=== PATIENT | male | born 1965 | race Caucasian/White ===

== ENCOUNTER 2018-05-21 11:33 | Inpatient (IN) | payer OTHER ==
[2018-05-21 15:25] VITALS: BMI 30.4
--- NOTE | 2018-05-21 17:11 | HP ---
COWS - Scale Resting Pulse: 0= NM 80 or Below Sweatin=Flushed/Facial Moisture Restless Observation: 1= Difficult to Sit Still Pupil Size: 0= Normal to Room Light Bone or Joint Aches: 2= Severe Diffuse Aches Runny Nose/ Eye Tearin= Runny Nose/Eyes GI Upset > 30mins: 2= Nausea/Diarrhea Tremor Observation: 2= Slight Tremor Visible Yawning Observation: 2= >3x During Session Anxiety or Irritability: 2=Irritable/Anxious Goose Flesh Skin: 3=Piloerection COWS Score: 18 CIWA Score - CIWA Score Nausea/Vomitin-Mild Nausea/No Vomiting Muscle Tremors: 4-Moderate,w/Arms Extend Anxiety: 4-Mod. Anxious/Guarded Agitation: 4-Moderately Restless Paroxysmal Sweats: 3 Orientation: 0-Oriented Tacttile Disturbances: 0-None Auditory Disturbances: 0-None Visual Disturbances: 0-None Headache: 1-Very Mild CIWA-Ar Total Score: 17 Admission ROS [facility] - HPI Chief Complaint: I need help. Allergies/Adverse Reactions: Allergies Allergy/AdvReac Type Severity Reaction Status Date / Time lactose Allergy Verified 05/21/18 17:05 History of Present Illness: pt is a 53yr old male with a history of alcohol and heroin dependence seeking detox for treatment. Exam Limitations: No Limitations - Ebola screening Have you traveled outside of the country in the last 21 days: No Have you had contact with anyone from an Ebola affected area: No Have you been sick,other than usual withdrawal symptoms: No Do you have a fever: No - Review of Systems Constitutional: Chills, Diaphoresis, Loss of Appetite, Night Sweats, Changes in sleep EENT: reports: Tearing, Nose Congestion Respiratory: reports: No Symptoms reported Cardiac: reports: Lightheadedness GI: reports: Nausea, Poor Appetite, Poor Fluid Intake : reports: No Symptoms Reported Musculoskeletal: reports: Joint Pain, Muscle Pain Integumentary: reports: Flushing, Sweating Neuro: reports: Tingling Endocrine: reports: Excessive Sweating, Flushing, Intolerance to Cold, Intolerance to Heat Hematology: reports: No Symptoms Reported Psychiatric: reports: Judgement Intact, Mood/Affect Appropiate, Orientated x3, Agitated, Anxious Other Systems: Reviewed and Negative Patient History - Patient Medical History Hx Anemia: No Hx Asthma: No Hx Chronic Obstructive Pulmonary Disease (COPD): No Hx Cancer: No Hx Cardiac Disorders: No Hx Congestive Heart Failure: No Hx Hypertension: Yes (not currently taking medication) Hx Hypercholesterolemia: No Hx Pacemaker: No HX Cerebrovascular Accident: No Hx Seizures: No Hx Dementia: No Hx Diabetes: No Hx Gastrointestinal Disorders: No Hx Liver Disease: No Hx Genitourinary Disorders: No Hx Sexually Transmitted Disorders: No Hx Renal Disease (ESRD): No Hx Thyroid Disease: No Hx Human Immunodeficiency Virus (HIV): No (denies) Hx Hepatitis C: No (denies) Hx Depression: Yes Hx Suicide Attempt: No (denies) Hx Bipolar Disorder: No Hx Schizophrenia: No - Patient Surgical History Past Surgical History: Yes Hx Orthopedic Surgery: Yes (foot surgery 1989) - PPD History Previous Implant?: Yes Documented Results: Positive w/o proof PPD to be Administered?: No - Reproductive History Patient is a Female of Child Bearing Age (11 -55 yrs old): No - Smoking Cessation Smoking history: Former smoker Have you smoked in the past 12 months: No If you are a former smoker, when did you quit?: 5yrs ago Hx Chewing Tobacco Use: No Initiated information on smoking cessation: Yes 'Breaking Loose' booklet given: 05/21/18 - Substance & Tx. History Hx Alcohol Use: Yes Hx Substance Use: Yes Substance Use Type: Alcohol, Heroin Hx Substance Use Treatment: No - Substances Abused Heroin Route: Inhalation Frequency: Daily Amount used: 10 BAGS Age of first use: 14 Date of Last Use: 05/21/18 Alcohol Route: Oral Frequency: Daily Amount used: 2 PINTS VODKA Age of first use: 12 Date of Last Use: 05/21/18 Family Disease History - Family Disease History Family History: Denies Family Disease History: Diabetes: Mother, Heart Disease: Father Admission Physical Exam BHS - Vital Signs Vital Signs: Vital Signs - 24 hr 05/21/18 15:22 Temperature 98.2 F Pulse Rate 76 Respiratory 18 Rate Blood Pressure 146/96 - Physical General Appearance: Yes: Appropriately Dressed, Tremorous, Irritable, Sweating, Anxious HEENTM: Yes: Hearing grossly Normal, Normal Voice, Nasal Congestion, Rhinorrhea Respiratory: Yes: Lungs Clear, Normal Breath Sounds, No Respiratory Distress Neck: Yes: No masses,lesions,Nodules Breast: Yes: Within Normal Limits Cardiology: Yes: Regular Rhythm, Regular Rate, S1, S2 Abdominal: Yes: Normal Bowel Sounds, Non Tender, Soft Genitourinary: Yes: Within Normal Limits Back: Yes: Normal Inspection Musculoskeletal: Yes: full range of Motion, Back pain Extremities: Yes: Normal Capillary Refill, Normal Inspection, Non-Tender, Tremors Neurological: Yes: Fully Oriented, Alert, Normal Response Integumentary: Yes: Diaphoresis Lymphatic: Yes: Within Normal Limits - Diagnostic (1) Opioid dependence with withdrawal Current Visit: Yes Status: Chronic (2) Alcohol dependence with uncomplicated withdrawal Current Visit: Yes Status: Chronic (3) Hypertension Current Visit: Yes Status: Chronic Qualifiers: Hypertension type: unspecified Qualified Code(s): I10 - Essential (primary ) hypertension (4) Chronic foot pain Current Visit: Yes Status: Chronic Qualifiers: Laterality: right Qualified Code(s): M79.671 - Pain in right foot; G89.29 - Other chronic pain Cleared for Admission [facility] - Detox or Rehab [facility] Level of Care: Medically Managed Detox Regimen/Protocol: Methadone/Librium [facility] Breath Alcohol Content Breath Alcohol Content: 0.054 Urine Drug Screen - Results Drug Screen Negative: No Urine Drug Screen Results: OPI-Opiates, MTD-Methadone, OXY-Oxycodone
[2018-05-21] MEDS ORDERED: guaiFENesin/D-METHORPHAN HB 10 ML UNIT-DOSE CUPS PO PRN (17:22)
[2018-05-21] MEDS ORDERED: P-EPHED 60MG/TRIPROLIDI 2.5MG TABLET PO PRN (17:22)
[2018-05-21] MEDS ORDERED: MAGNESIUM CITRATE 300 ML BOTTLE PO PRN (17:22)
[2018-05-21] MEDS ORDERED: MENTHOL/PHENOL 1 EACH UD MM PRN (17:22)
[2018-05-21] MEDS ORDERED: MAG HYDROX/AL HYDROX/SIMETH 30 ML UNIT-DOSE CUP PO PRN (17:22)
[2018-05-21] MEDS ORDERED: MAGNESIUM HYDROX 2400MG/30ML ORAL SUSPENSION 30 ML CUP PO PRN (17:22)
[2018-05-21] MEDS ORDERED: chlordiazePOXIDE HCL 25 MG CAPSULE PO PRN (17:22)
[2018-05-21] MEDS ORDERED: LOPERAMIDE HCL 2 MG CAPSULE PO PRN (17:22)
[2018-05-21] MEDS ORDERED: METHADONE HCL 10 MG TABLET (FOR DETOX USE ONLY) PO ONE ×2 (18:00→23:00)
[2018-05-21] MEDS ORDERED: chlordiazePOXIDE HCL 25 MG CAPSULE PO ONE (18:00)
[2018-05-21] MEDS: IBUPROFEN 400 MG TABLET (FP) PO PRN (18:27)
[2018-05-21] MEDS: chlordiazePOXIDE HCL 25 MG CAPSULE PO SCH (22:26)
[2018-05-21] MEDS: THIAMINE HCL 100 MG TABLET (FP) PO SCH (22:26)
[2018-05-21] MEDS: MELATONIN 5 MG TABLETS PO PRN (22:27)
[2018-05-21 23:25] LABS: URINE APPEARANCE TURBID; URINE BILIRUBIN NEGATIVE (<2.0 mg/dL); URINE COLOR YELLOW; URINE GLUCOSE (UA) NEGATIVE (NEGATIVE); URINE KETONE NEGATIVE (NEGATIVE); URINE LEUK ESTERASE NEGATIVE (NEGATIVE); URINE NITRITE NEGATIVE (NEGATIVE); URINE PROTEIN NEGATIVE (NEGATIVE)
[2018-05-22] MEDS: chlordiazePOXIDE HCL 25 MG CAPSULE PO SCH ×4 (05:41→22:22)
--- NOTE | 2018-05-22 07:21 | PN ---
[facility] Progress Note Note: clonidine 0.1mg po bid for elevated b/p vs. withdrawal sx's client reports hx/o htn not on meds cont to monitor clinically Last Vital Signs Temp Pulse Resp BP Pulse Ox 98.7 F 77 18 197/119 05/22/18 06:22 18 06:30 05/22/18 06:30 05/22/18 06:22
[2018-05-22] MEDS: cloNIDine HCL 0.1 MG TABLET PO SCH ×2 (07:28→22:22)
[2018-05-22] MEDS ORDERED: METHADONE HCL 10 MG TABLET (FOR DETOX USE ONLY) PO SCH (10:00)
[2018-05-22 10:21] LABS: HEMATOCRIT 37.3 % (35.4-49); HEMOGLOBIN 12.6 GM/dL (11.7-16.9); MCH 30.5 pg (25.7-33.7); MCHC 33.8 g/dl (32.0-35.9); MEAN CELL VOLUME 90.1 fl (80-96); MEAN PLT VOLUME 7.3 fl (7.5-11.1); PLATELET COUNT 236 K/MM3 (134-434); RBC 4.14 M/mm3 (4.00-5.60); RDW 13.5 % (11.9-15.9); WHITE BLOOD COUNT 3.9 K/mm3 (4.0-10.0)
[2018-05-22] MEDS: PRENATAL VITAMINS W/ FOLIC ACID TABLET (FP) PO SCH (10:35)
[2018-05-22 10:49] LABS: CHLORIDE 107 mmol/L (98-107); POTASSIUM 3.9 mmol/L (3.5-5.1); SODIUM 143 mmol/L (136-145)
[2018-05-22 10:58] LABS: ALBUMIN 3.4 g/dl (3.4-5.0); ALK PHOS 79 U/L (45-117); ANION GAP 7 (8-16); BILIRUBIN,TOTAL 0.4 mg/dL (0.2-1.0); BLOOD UREA NITROGEN 18 mg/dL (7-18); CALCIUM 8.8 mg/dL (8.5-10.1); CO2 29 mmol/L (21-32); CREATININE 0.9 mg/dL (0.7-1.3); GLUCOSE,RANDOM 99 mg/dL (74-106); SGOT/AST 21 U/L (15-37); SGPT/ALT 26 U/L (12-78); TOT PROT 6.4 g/dl (6.4-8.2)
--- NOTE | 2018-05-22 11:15 | EKG ---
Test Reason : Blood Pressure : / mmHG Vent. Rate : 070 BPM Atrial Rate : 070 BPM P-R Int : 150 ms QRS Dur : 100 ms QT Int : 402 ms P-R-T Axes : 061 013 009 degrees QTc Int : 434 ms NORMAL SINUS RHYTHM NORMAL ECG NO PREVIOUS ECGS AVAILABLE Confirmed by NAN KONG MD ([id number]) on 05/22/2018 11:15:22 AM Referred By: Confirmed By:NAN KONG MD
--- NOTE | 2018-05-22 11:37 | PN ---
S COWS - Scale Resting Pulse: 1= OR 81-100 Sweatin= Chills/Flushing Restless Observation: 3= Extraneous Movement Pupil Size: 2= Moderately Dilated Bone or Joint Aches: 4=Acute Joint/Muscle Pain Runny Nose/ Eye Tearin= None GI Upset > 30mins: 0= None Tremor Observation of Outstretched Hands: 0= None Yawning Observation: 1= 1-2x During Session Anxiety or Irritability: 2=Irritable/Anxious Goose Flesh Skin: 0=Smooth Skin COWS Score: 14 [facility] Progress Note (SOAP) Subjective: [facility] CIWA - CIWA Score Nausea/Vomitin-No Nausea/No Vomiting Muscle Tremors: 1-None Visible, but [place] Anxiety: 5 Agitation: 5 Paroxysmal Sweats: 1-Minimal Palms Moist Orientation: 0-Oriented Tacttile Disturbances: 0-None Auditory Disturbances: 0-None Visual Disturbances: 0-None Headache: 2-Mild CIWA-Ar Total Score: 14 PT C/O ANXIETY,HOT/COLD SWEATS,HEADACHE,WOOZY,INTERMITTENT SLEEP. Objective: 05/22/18 11:36 Vital Signs 05/22/18 05/22/18 05/22/18 04:00 04:30 05:00 Temperature Pulse Rate 64 69 73 Respiratory 18 18 18 Rate Blood Pressure 05/22/18 05/22/18 05/22/18 05:30 06:00 06:22 Temperature 98.7 F Pulse Rate 75 77 77 Respiratory 18 18 18 Rate Blood Pressure 197/119 05/22/18 05/22/18 05/22/18 06:30 07:00 07:28 Temperature 98.1 F Pulse Rate 77 75 60 Respiratory 18 18 18 Rate Blood Pressure 171/101 05/22/18 05/22/18 05/22/18 07:30 08:00 08:30 Temperature Pulse Rate 75 73 78 Respiratory 18 18 16 Rate Blood Pressure 05/22/18 09:59 Temperature 97.6 F Pulse Rate 84 Respiratory 20 Rate Blood Pressure 135/92 Laboratory Tests 05/21/18 05/22/18 05/22/18 22:00 07:00 07:00 WBC 3.9 L RBC 4.14 Hgb 12.6 Hct 37.3 MCV 90.1 MCH 30.5 MCHC 33.8 RDW 13.5 Plt Count 236 MPV 7.3 L Sodium 143 Potassium 3.9 Chloride 107 Carbon Dioxide 29 Anion Gap 7 L BUN 18 Creatinine 0.9 Creat Clearance w eGFR > 60 Random Glucose 99 Calcium 8.8 Total Bilirubin 0.4 AST 21 ALT 26 Alkaline Phosphatase 79 Total Protein 6.4 Albumin 3.4 Urine Color Yellow Urine Appearance Turbid Urine pH 5.0 Ur Specific [place] 1.030 Urine Protein Negative Urine Glucose (UA) Negative Urine Ketones Negative Urine Blood Negative Urine Nitrite Negative Urine Bilirubin Negative Urine Urobilinogen 2.0 Ur Leukocyte Esterase Negative Assessment: 05/22/18 11:37 WITHDRAWAL SX Plan: CONTINUE DETOX
--- NOTE | 2018-05-22 11:58 | PN ---
[facility] CIWA - CIWA Score Nausea/Vomitin-No Nausea/No Vomiting Muscle Tremors: 1-None Visible, but [place] Anxiety: 5 Agitation: 5 Paroxysmal Sweats: 1-Minimal Palms Moist Orientation: 0-Oriented Tacttile Disturbances: 0-None Auditory Disturbances: 0-None Visual Disturbances: 0-None Headache: 2-Mild CIWA-Ar Total Score: 14
[2018-05-22] MEDS ORDERED: chlordiazePOXIDE HCL 25 MG CAPSULE PO ONE (14:00)
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
[2018-05-22] MEDS: ACETAMINOPHEN 325 MG TABLET (FP) PO PRN (17:26)
[2018-05-22] MEDS: hydrOXYzine PAMOATE 50 MG CAPSULE (FP) PO PRN (17:27)
[2018-05-22] MEDS: THIAMINE HCL 100 MG TABLET (FP) PO SCH (22:22)
[2018-05-22] MEDS: ZOLPIDEM TARTRATE 10 MG TABLET (PARK CARE ONLY) PO PRN (22:22)
[2018-05-23] MEDS: chlordiazePOXIDE HCL 25 MG CAPSULE PO SCH ×3 (06:09→17:32)
[2018-05-23] MEDS ORDERED: cloNIDine HCL 0.1 MG TABLET PO ONE (07:14)
--- NOTE | 2018-05-23 07:18 | PN ---
[facility] Progress Note Note: Patient's blood pressure is B/P 181/101. Patient is asymptomatic Laboratory Last Values Vital Signs Temperature 97 F L 05/23/18 06:28 Pulse Rate 52 L 05/23/18 06:28 Respiratory Rate 18 05/23/18 06:28 Blood Pressure 181/101 05/23/18 06:28 O2 Sat by Pulse Oximetry (%) Action: Clonidine 0.1mg tablet oral ordered
[2018-05-23] MEDS: PRENATAL VITAMINS W/ FOLIC ACID TABLET (FP) PO SCH (10:20)
[2018-05-23] MEDS: cloNIDine HCL 0.1 MG TABLET PO SCH ×2 (10:20→22:05)
[2018-05-23] MEDS: METHADONE HCL 5 MG TABLET (FOR DETOX USE ONLY) PO SCH (10:21)
--- NOTE | 2018-05-23 16:30 | PN ---
[facility] Progress Note (SOAP) Subjective: Sweating, H/A, Interrupted sleep, Vomiting, Fatigue. Objective: PATIENT A & O X 3. NO ACUTE DISTRESS. PATIENT DENIES CHEST PAIN. 05/23/18 16:29 Vital Signs Temperature 98.2 F 05/23/18 14:01 Pulse Rate 58 L 05/23/18 14:01 Respiratory Rate 18 05/23/18 14:01 Blood Pressure 114/69 05/23/18 14:01 O2 Sat by Pulse Oximetry (%) Laboratory Tests 05/21/18 05/22/18 05/22/18 22:00 07:00 07:00 WBC 3.9 L RBC 4.14 Hgb 12.6 Hct 37.3 MCV 90.1 MCH 30.5 MCHC 33.8 RDW 13.5 Plt Count 236 MPV 7.3 L Sodium 143 Potassium 3.9 Chloride 107 Carbon Dioxide 29 Anion Gap 7 L BUN 18 Creatinine 0.9 Creat Clearance w eGFR > 60 Random Glucose 99 Calcium 8.8 Total Bilirubin 0.4 AST 21 ALT 26 Alkaline Phosphatase 79 Total Protein 6.4 Albumin 3.4 Urine Color Yellow Urine Appearance Turbid Urine pH 5.0 Ur Specific [place] 1.030 Urine Protein Negative Urine Glucose (UA) Negative Urine Ketones Negative Urine Blood Negative Urine Nitrite Negative Urine Bilirubin Negative Urine Urobilinogen 2.0 Ur Leukocyte Esterase Negative RPR Titer HIV 1&2 Antibody Screen HIV P24 Antigen 05/22/18 05/22/18 07:00 07:00 WBC RBC Hgb Hct MCV MCH MCHC RDW Plt Count MPV Sodium Potassium Chloride Carbon Dioxide Anion Gap BUN Creatinine Creat Clearance w eGFR Random Glucose Calcium Total Bilirubin AST ALT Alkaline Phosphatase Total Protein Albumin Urine Color Urine Appearance Urine pH Ur Specific [place] Urine Protein Urine Glucose (UA) Urine Ketones Urine Blood Urine Nitrite Urine Bilirubin Urine Urobilinogen Ur Leukocyte Esterase RPR Titer Nonreactive HIV 1&2 Antibody Screen Negative HIV P24 Antigen Negative LABS NOTED. 05/23/18 16:30 Assessment: 05/23/18 16:29 WITHDRAWAL SYMPTOMS. Plan: CONTINUE DETOX. INCREASE DAILY PO FLUID INTAKE. CONTINUE TO MONITOR BP.
[2018-05-23] MEDS: ZOLPIDEM TARTRATE 10 MG TABLET (PARK CARE ONLY) PO PRN (22:05)
[2018-05-23] MEDS: THIAMINE HCL 100 MG TABLET (FP) PO SCH (22:05)
[2018-05-23] MEDS: chlordiazePOXIDE 5 MG CAPSULE PO SCH (22:05)
[2018-05-23] MEDS: IBUPROFEN 400 MG TABLET (FP) PO PRN (23:29)
[2018-05-24] MEDS: hydrOXYzine PAMOATE 50 MG CAPSULE (FP) PO PRN (00:44)
[2018-05-24] MEDS: chlordiazePOXIDE 5 MG CAPSULE PO SCH ×3 (04:24→16:10)
[2018-05-24] MEDS: cloNIDine HCL 0.1 MG TABLET PO SCH ×2 (09:58→22:14)
[2018-05-24] MEDS: PRENATAL VITAMINS W/ FOLIC ACID TABLET (FP) PO SCH (09:58)
[2018-05-24] MEDS: ACETAMINOPHEN 325 MG TABLET (FP) PO PRN (09:59)
[2018-05-24] MEDS: METHADONE HCL 5 MG TABLET (FOR DETOX USE ONLY) PO SCH (09:59)
--- NOTE | 2018-05-24 15:03 | PN ---
[facility] Progress Note (SOAP) Subjective: Headache (from caffeine withdrawal, patient stated he drinks 1 cup of coffee daily and he's getting decaffeinated drink and he prefers to have real coffee), anxious Objective: 05/24/18 15:02 Last Vital Signs Temp Pulse Resp BP Pulse Ox 97.7 F 51 L 16 127/80 05/24/18 14:54 05/24/18 14:54 05/24/18 14:54 05/24/18 14:54 Laboratory Tests 05/21/18 05/22/18 05/22/18 22:00 07:00 07:00 WBC 3.9 L RBC 4.14 Hgb 12.6 Hct 37.3 MCV 90.1 MCH 30.5 MCHC 33.8 RDW 13.5 Plt Count 236 MPV 7.3 L Sodium 143 Potassium 3.9 Chloride 107 Carbon Dioxide 29 Anion Gap 7 L BUN 18 Creatinine 0.9 Creat Clearance w eGFR > 60 Random Glucose 99 Calcium 8.8 Total Bilirubin 0.4 AST 21 ALT 26 Alkaline Phosphatase 79 Total Protein 6.4 Albumin 3.4 Urine Color Yellow Urine Appearance Turbid Urine pH 5.0 Ur Specific [place] 1.030 Urine Protein Negative Urine Glucose (UA) Negative Urine Ketones Negative Urine Blood Negative Urine Nitrite Negative Urine Bilirubin Negative Urine Urobilinogen 2.0 Ur Leukocyte Esterase Negative RPR Titer HIV 1&2 Antibody Screen HIV P24 Antigen 05/22/18 05/22/18 07:00 07:00 WBC RBC Hgb Hct MCV MCH MCHC RDW Plt Count MPV Sodium Potassium Chloride Carbon Dioxide Anion Gap BUN Creatinine Creat Clearance w eGFR Random Glucose Calcium Total Bilirubin AST ALT Alkaline Phosphatase Total Protein Albumin Urine Color Urine Appearance Urine pH Ur Specific [place] Urine Protein Urine Glucose (UA) Urine Ketones Urine Blood Urine Nitrite Urine Bilirubin Urine Urobilinogen Ur Leukocyte Esterase RPR Titer Nonreactive HIV 1&2 Antibody Screen Negative HIV P24 Antigen Negative Labs reviewed Assessment: 05/24/18 15:03 Withdrawal symptoms Plan: Continue detox
[2018-05-24] MEDS: IBUPROFEN 400 MG TABLET (FP) PO PRN (18:38)
[2018-05-24] MEDS: MELATONIN 5 MG TABLETS PO PRN (22:12)
[2018-05-24] MEDS: THIAMINE HCL 100 MG TABLET (FP) PO SCH (22:12)
[2018-05-24] MEDS: chlordiazePOXIDE HCL 10 MG CAPSULE PO SCH (22:16)
[2018-05-25] MEDS: hydrOXYzine PAMOATE 50 MG CAPSULE (FP) PO PRN (00:31)
[2018-05-25] MEDS: chlordiazePOXIDE HCL 10 MG CAPSULE PO SCH (05:45)
[2018-05-25] MEDS ORDERED: cloNIDine HCL 0.1 MG TABLET PO ONE (06:43)
[2018-05-25 09:23] VITALS: BP 151/96; PULSE 58; TEMP 96.9
[2018-05-25] MEDS ORDERED: METHADONE HCL 10 MG TABLET (FOR DETOX USE ONLY) PO SCH (10:00)
--- NOTE | 2018-05-25 12:42 | PN ---
[facility] Progress Note (SOAP) Subjective: sleep disturbance sweats Requesting to leave to go see his dosctor to give him sleep medication. Objective: 05/25/18 12:35 A & O x 3 Anxious Refusing to stay despite being offered a psych MD revist to address the sleep medication' issue, states the sleep medicine randal's part of his detox regime is not helping him States also that his car is parked on the street and needs to be moved before 11.30am so he does not get a ticket. Vital SignsPt ref Temperature 96.9 F L 05/25/18 09:21 Pulse Rate 58 L 05/25/18 09:21 Respiratory Rate 16 05/25/18 09:21 Blood Pressure 151/96 05/25/18 09:21 O2 Sat by Pulse Oximetry (%) Refused to calm down so this provider can evaluate him properly and discharge him. 05/25/18 12:42 Assessment: 05/25/18 12:42 pt will sign out AMA
--- NOTE | 2018-05-25 12:44 | DS ---
[facility] Detox Discharge Summary Admission Date: 05/21/18 Discharge Date: 05/25/18 - History Additional Comments: pt leaving unit AMA pls see SOAP note Pertinent Past History: HTN - Physical Exam Results Vital Signs: Vital Signs Temperature 96.9 F L 05/25/18 09:21 Pulse Rate 58 L 05/25/18 09:21 Respiratory Rate 16 05/25/18 09:21 Blood Pressure 151/96 05/25/18 09:21 O2 Sat by Pulse Oximetry (%) Pertinent Admission Physical Exam Findings: withdrawal sx - Medication Discharge Medications: Ambulatory Orders NK [No Known Home Medication] 05/21/18 - AMA Did Patient Leave Against Medical Advice: Yes
[2018-05-26] MEDS ORDERED: METHADONE HCL 5 MG TABLET (FOR DETOX USE ONLY) PO SCH (06:00)
== END 2018-05-25 10:52 | disposition left against medical advice (07) | DRG 773 ==
LOC: YASAS 11:33 → Y3N 17:38
PROVIDERS: ADMIT Surgery; ATTEND Surgery
PROC: HZ2ZZZZ Detoxification Services for Substance Abuse Treatment (ICD-10-PCS; principal; 2018-05-21)
DX: F11.23 Opioid dependence with withdrawal (principal); F10.230 Alcohol dependence with withdrawal, uncomplicated; I10 Essential (primary) hypertension; G47.00 Insomnia, unspecified; M79.671 Pain in right foot; G89.29 Other chronic pain; Z91.011 Allergy to milk products; Z87.891 Personal history of nicotine dependence
CPT/HCPCS: 36415; 71046-TC-FY; 80053; 81003; 85027; 86593; 87389; 93005; 93010; J0735